=== PATIENT | male | born 1980 | race Caucasian/White ===

== ENCOUNTER 2020-02-27 19:05 | Emergency (ER) | payer OTHER ==
[~2020-02-27] VITALS: Ht 177.8 cm; Wt 86.2 kg
--- NOTE | ~2020-02-27 | EMS ---
[facility] [place] [address] EMS Patient Care Report Name: DEEJAY PETERSON Room: [facility].[place]#: [id number] Admission: 02/27/20 Attend Phys: Discharge: 02/27/20 Date of : 84 Report #: [id number] THIS REPORT FOR: //name// Report Transmitted: 02/28/2020 00:02 EMS Care Summary [facility] [place] Incident [id number] @ 02/27/2020 18:18 Incident Location [place] [id number] Patient DEEJAY PETERSON Male, 39 Years 1980 Patient Address [address] [address] Patient History Unspecified abdominal hernia, Patient Allergies No known allergies, Chief Complaint Abdominal pain/discomfort Disposition Transported No Lights/Topping Dispatch Reason Sick Person Transported To [facility] Narrative [facility] DISPATCHED TO STATED LOCATION FOR MALE PT, SIDE PAIN. ON ARRIVAL TO THE SCENE, WE WERE MET BY FIRE PERSONNEL, WHO ADVISED THAT THE PT WAS COMPLAINING OF SUDDEN ONSET, SEVERE LOWER RIGHT QUADRANT PAIN, WITH SLIGHT RIGIDITY ON PALPATION. FIRE PERSONNEL PLACED AN IV PRIOR TO MOVING THE PT NOTED. HE WAS ASSISTED TO THE STRETCHER, SECURED, AND LOADED FOR TRANSPORT. ONCE ON BOARD, VITAL SIGNS AND INTERVENTIONS WERE NOTED. PT ADVISED THAT BEFORE THE PAIN [address] [place] [address] EMS Patient Care Report Name: DEEJAY PETERSON Room: [facility]#: [id number] Admission: 02/27/20 Attend Phys: Discharge: 02/27/20 Date of : 84 Report #: [id number] BEGAN, HE WAS TRYING TO USE THE RESTROOM, WAS UNABLE TO URINATE OR DEFECATE, AND THE PAIN STARTED SHORTLY THEREAFTER. PT DID NOTE HISTORY OF HIATAL HERNIA. PT REPORTED LITTLE CHANGE IN PAIN LEVEL EVEN AFTER SECOND DOSE OF FENTANYL. NO CHANGES IN OVERALL STATUS WHILE EN ROUTE. IN PERSON HANDOFF REPORT GIVEN TO RECEIVING NURSE INDICATED. PT CARE TRANSFERRED WITHOUT INCIDENT. UNIT IN SERVICE. END OF REPORT JUSTICE [facility]ERRE [id number] Initial Vitals @[employer]: 18:27Pain: 12/04, @18:53Pain: 12/04, @18:34SpO2: 95, @18:40SpO2: 90, @18:46SpO2: 97, @18:36 @18:34P: 67,R: 24,BP: 170/94, @18:40P: 62,R: 24,BP: 158/95, @18:34GCS: 15, @18:40GCS: 15, Assessments @18:27MENTAL:SKIN:HEENT:LUNG SOUNDS:ABDOMEN:PELVIS//GI:EXTREMITIES:PULSE:NEURO: Impression Acute abdomen Procedures @18:49Ondansetron - 4.000 Milligrams (mg) - Intravenous (IV)Response: Improved@18:36Fentanyl - 50.000 Micrograms (mcg) - Intravenous (IV)Response: Unchanged@18:50Fentanyl - 50.000 Micrograms (mcg) - Intravenous (IV)Response: Unchanged@18:27 cc () Site: Hand-LeftResponse: UnchangedSucceeded@18:363-Lead ECGResponse: UnchangedSucceeded Timeline 18:15,Call Received 18:15,Dispatch Notified 18:15,Psap Call 18:18,Dispatched 18:18,En Route 18:25,On Scene 18:27,At Patient 18:27, cc Site: Hand-Left,Response: UnchangedSucceeded, 18:27,BP: / M,PULSE: ,RR: R,SPO2: Ox,ETCO2: ,BG: ,PAIN: 8,GCS: , 18:34,BP: / M,PULSE: ,RR: R,SPO2: 95 Ox,ETCO2: ,BG: ,PAIN: ,GCS: , 18:34,BP: 170/94 M,PULSE: 67,RR: 24 R,SPO2: Ox,ETCO2: ,BG: ,PAIN: ,GCS: , 18:34,BP: / M,PULSE: ,RR: R,SPO2: Ox,ETCO2: ,BG: ,PAIN: ,GCS: 15, [place] [address] EMS Patient Care Report Name: DEEJAY PETERSON Room: [facility]#: [id number] Admission: 02/27/20 Attend Phys: Discharge: 02/27/20 Date of : 84 Report #: [id number] 18:36,Depart Scene 18:36,Fentanyl - 50.000 Micrograms (mcg) - Intravenous (IV),Response: Unchanged 18:36,3-Lead ECG,Response: UnchangedSucceeded, 18:36,BP: / M,PULSE: ,RR: R,SPO2: Ox,ETCO2: ,BG: ,PAIN: ,GCS: , 18:40,BP: / M,PULSE: ,RR: R,SPO2: 90 Ox,ETCO2: ,BG: ,PAIN: ,GCS: , 18:40,BP: 158/95 M,PULSE: 62,RR: 24 R,SPO2: Ox,ETCO2: ,BG: ,PAIN: ,GCS: , 18:40,BP: / M,PULSE: ,RR: R,SPO2: Ox,ETCO2: ,BG: ,PAIN: ,GCS: 15, 18:46,BP: / M,PULSE: ,RR: R,SPO2: 97 Ox,ETCO2: ,BG: ,PAIN: ,GCS: , 18:49,Ondansetron - 4.000 Milligrams (mg) - Intravenous (IV),Response: Improved 18:50,Fentanyl - 50.000 Micrograms (mcg) - Intravenous (IV),Response: Unchanged 18:53,BP: / M,PULSE: ,RR: R,SPO2: Ox,ETCO2: ,BG: ,PAIN: 8,GCS: , 18:54,At Destination 19:12,Call Closed Disclaimer v1.1 Copyright 2020 [employer] This EMS Care Summary contains data elements from the applicable legal record (which may be displayed differently). It is designed to provide pertinent information for the following purposes: continuity of care, clinical quality, and state data reporting. The complete legal record is available to ED staff and administrators of the receiving hospital in [employer]'s Patient Tracker. All data is provided "as is."
[2020-02-27 19:35] LABS: HEMATOCRIT 48.7 % (42.0-52.0); HEMOGLOBIN 16.2 gm/dL (14.0-18.0); MCH 29.6 pg (26.0-34.0); MCHC 33.3 g/dL (28.0-37.0); MPV 6.4 fl. (7.2-11.1); NUCLEATED RBCS 0 /100WBC; PLATELET COUNT* 443 thou/uL (150-400); RBC 5.47 mil/uL (4.50-6.00); RDW-CV 12.5 % (10.5-14.5); WBC 20.7 thou/uL (4.0-11.0)
[2020-02-27 19:44] LABS: CALCIUM 9.2 mg/dL (8.5-10.1); CREATININE 1.1 mg/dL (0.6-1.3); POTASSIUM 3.2 mmol/L (3.5-5.1)
[2020-02-27 19:49] LABS: TOTAL BILIRUBIN 0.5 mg/dL (<0.1-1.0); TOTAL PROTEIN 7.7 g/dL (6.4-8.2)
[2020-02-27 20:31] LABS: ABSOLUTE LYMPHOCYTES 1.2 thou/uL (0.8-5.3); ABSOLUTE MONOCYTES 0.6 thou/uL (0.0-1.2); ABSOLUTE NEUTROPHILS 18.8 thou/uL (1.6-8.1); PLATELET ESTIMATE ADEQUATE
[2020-02-27] MEDS ORDERED: FLOMAX0.4 MG PO (21:09)
[2020-02-27] MEDS ORDERED: PERCOCET PO (21:09)
[2020-02-27] MEDS ORDERED: CIPRO500 MG PO ×3 (21:09→22:10)
[2020-02-27] MEDS ORDERED: ONDANSETRON HCL4 M2 PO ×2 (21:09→22:11)
[2020-02-27] MEDS ORDERED: IBUPROFEN 800800 M1 PO (21:09)
[2020-02-27 22:19] LABS: URINE BILIRUBIN NEGATIVE (Negative); URINE BLOOD 3+ (Negative); URINE CLARITY CLEAR; URINE COLOR YELLOW; URINE GLUCOSE-RANDOM NEGATIVE (Negative); URINE KETONES NEGATIVE (Negative); URINE LEUKOCYTES-REFLEX NEGATIVE (Negative); URINE NITRITE-REFLEX NEGATIVE (Negative); URINE PROTEIN NEGATIVE (Negative); URINE SPECIFIC GRAVITY <= 1.005 (1.005-1.030); URINE UROBILINOGEN 0.2 E.U./dl (0.2-1.0)
[2020-02-27 22:45] LABS: CASTS None Seen /LPF (None Seen); SQUAMOUS 0-3 Few /LPF (0-3)
[2020-02-27 22:46] LABS: BACTERIA-REFLEX 1-9 Few /HPF (None Seen); CRYSTALS None Seen /LPF (None Seen); URINE WBC-REFLEX None Seen /HPF (0-5)
[2020-02-27] MEDS ORDERED: KEFLEX500 M1 PO (22:48)
[2020-02-27 23:02] VITALS: BP 114/64
== END 2020-02-27 23:03 | disposition home or self-care (01) ==
LOC: M.ERS 19:05 → EDBD 19:05 → M.ERS 23:03
PROVIDERS: Nurse Practitioner Family
DX: N20.1 Calculus of ureter (principal); R91.1 Solitary pulmonary nodule